=== PATIENT | male | born 1990 | race Two or more races ===

== ENCOUNTER 2017-03-17 21:44 | Emergency (ER) | payer OTHER ==
[~2017-03-17] VITALS: Ht 154.9 cm; Wt 63.5 kg
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
--- NOTE | 2017-03-17 22:12 | NUR ---
GARETH ROBERT AT BEDSIDE FOR EVAL.
--- NOTE | 2017-03-17 22:25 | NUR ---
BREAD PACKER AT BEDSIDE FOR BLOOD DRAW.
--- NOTE | 2017-03-17 22:25 | NUR ---
Nydia marin in [facility] - 03/18/17 at 1118 by ALEXA EMAIL ADMINISTRATOR AT BEDSIDE FOR WILMANAL.
[2017-03-17] MEDS ORDERED: IV NS 0.9% 1,000 ML BAG IV ONE (22:30)
[2017-03-17 22:48] LABS: BASOPHILS # (AUTO) 0.1 /CMM (0.0-0.2); BASOPHILS % (AUTO) 0.6 % (0.0-2.0); EOSINOPHILS # (AUTO) 0.1 /CMM (0.0-0.7); EOSINOPHILS % (AUTO) 1.4 % (0.0-6.0); HEMATOCRIT 41 % (39-51); HEMOGLOBIN 13.7 g/dL (13.5-17.5); LYMPHOCYTES # (AUTO) 3.1 /CMM (0.8-4.8); LYMPHOCYTES % (AUTO) 33.8 % (20.0-44.0); MEAN CORPUSCULAR HEMOGLOBIN 28 PG (26.0-33.0); MEAN CORPUSCULAR HGB CONC 34 g/dl (31.0-36.0); MEAN CORPUSCULAR VOLUME 84 fL (80-96); MONOCYTES # (AUTO) 0.6 /CMM (0.1-1.30); NEUTROPHILS # (AUTO) 5.2 /CMM (1.8-8.9); NEUTROPHILS % (AUTO) 57.2 % (43.0-81.0); PLATELET COUNT (AUTO) 320 /CMM (150-450); RDW COEFFICIENT OF VARIATION 12.7 (11.5-15.0); RED BLOOD CELL COUNT(AUTO) 4.84 MIL/uL (4.5-6.0); WHITE BLOOD COUNT (AUTO) 9.1 K/uL (4.3-11.0)
[2017-03-17 23:03] LABS: CALCIUM, SERUM 8.3 mg/dL (8.5-10.1); CREATININE 0.6 mg/dL (0.6-1.3); POTASSIUM 2.9 mmol/L (3.5-5.1)
[2017-03-17 23:10] LABS: ALBUMIN 4.2 g/dL (3.4-5.0); BILIRUBIN,DIRECT 0.1 mg/dL (0.0-0.2); BILIRUBIN,TOTAL 0.2 mg/dL (0.2-1.0); SALICYLATE 1.9 mg/dL (2.8-20.0); TOTAL PROTEIN, SERUM 7.5 g/dL (6.4-8.2)
--- NOTE | 2017-03-17 23:17 | NUR ---
REPORT GIVEN TO CHARGE NURSE EVELYN FOR JOLENE.
[2017-03-17 23:53] LABS: CANNABINOID, URINE NEGATIVE (NEGATIVE); PHENCYCLIDINE SCREEN,URINE NEGATIVE (NEGATIVE)
[2017-03-18] MEDS ORDERED: IV PREMIX D5 1/2NS + KCL 1,000 ML IV ONE ×2 (00:15→02:07)
[2017-03-18] MEDS ORDERED: OLANZAPINE 10 MG VIAL IM ONE ×2 (00:30→05:34)
[2017-03-18] MEDS ORDERED: IV SET PRIMARY PUMP SET 1 EA INFUS.SET MC ONE (02:07)
--- NOTE | 2017-03-18 02:10 | NUR ---
PT REFUSING IV INSERTION AND FLUIDS. DR REYES NOTIFIED.
[2017-03-18] MEDS ORDERED: WATER FOR INJECTION,STERILE 10 ML ONE (05:34)
--- NOTE | 2017-03-18 08:04 | NUR ---
PT'S - MAITE ZAVALA ([phone]), UPDATED WITH PT'S STATUS.
--- NOTE | 2017-03-18 11:00 | NUR ---
ASSUME PT CARE. SLEEPING, EASILY AROUSABLE. ON MONITOR W/ STABLE VITALS. VSS. NAD NOTED. WILL MONITOR CLOSELY.
--- NOTE | 2017-03-18 11:42 | NUR ---
PT AWAKE, PROVIDED W/ MEAL TRAY.
--- NOTE | 2017-03-18 12:28 | NUR ---
CALLED ANGIE FOR PSYCH EVAL ETA 1 HOUR
--- NOTE | 2017-03-18 13:26 | NUR ---
ANGIE AT BEDSIDE FOR PSYCH EVAL.
--- NOTE | 2017-03-18 15:10 | NUR ---
PT RESTING IN BED. CALM. WATCHING TV. NEEDS ATTENDED. WILL MONITOR.
[2017-03-18] MEDS ORDERED: LORAZEPAM 1 MG TABLET ONE (15:28)
[2017-03-18] MEDS ORDERED: LORAZEPAM 1 MG TABLET PO ONE (15:30)
--- NOTE | 2017-03-18 18:10 | NUR ---
PT IS MEDICALLY AND PSYCH CLEARED TO GO HOME. AT BEDSIDE. D/C IN STABLE CONDITION.
[2017-03-18 18:11] VITALS: BP 132/84
== END 2017-03-18 18:11 | disposition home or self-care (01) ==
LOC: ER 21:46
DX: F29 Unspecified psychosis not due to a substance or known physiological condition (principal); F10.129 Alcohol abuse with intoxication, unspecified; F32.9 Major depressive disorder, single episode, unspecified; F31.9 Bipolar disorder, unspecified
CPT/HCPCS: 36415; 80048-TC; 80076-TC; 80305; 83735-TC; 85025-TC; A4606; G0480; G6039-TC; J3490; Z7610

== ENCOUNTER 2019-04-06 17:49 | Emergency (ER) | payer SELFPAY ==
[~2019-04-06] VITALS: Ht 175.3 cm; Wt 69.4 kg
--- NOTE | 2019-04-06 18:03 | NUR ---
MONALISA SALDANA FROM HOME,DAD CALLED, DRANK 4 OZ. HAND TUBE STATION ATTENDANT AT 2 AM AND VODKA THROUGH OUT THE DAY "FOR MY ANXIETY". DENIES SI/HI. NO ACUTE DISTRESS NOTED. HOOKED TO MONITOR AND MADE COMFORTABLE. READY FOR EVAL.
--- NOTE | 2019-04-06 18:23 | NUR ---
POISON CONTROL CALLED,SPOKE WITH MARIIA RECOMMENDED: TREAT REGULAR ALCOHOL INTOXICATION,WATCH OUT FOR METABOLIC ACIDOSIS WHICH MAY BE DUE TO SOMETHING ELSE,KEEP HYDRATED AND BENZOS NEEDED. DR REGALADO INFORMED
[2019-04-06 18:28] LABS: BASOPHILS # (AUTO) 0.1 /CMM (0.0-0.2); BASOPHILS % (AUTO) 1.3 % (0.0-2.0); HEMATOCRIT 46 % (39-51); HEMOGLOBIN 15.4 g/dL (13.5-17.5); LYMPHOCYTES # (AUTO) 1.8 /CMM (0.8-4.8); LYMPHOCYTES % (AUTO) 38.2 % (20.0-44.0); MEAN CORPUSCULAR HGB CONC 34 g/dl (31.0-36.0); MEAN CORPUSCULAR VOLUME 91 fL (80-96); MONOCYTES # (AUTO) 0.3 /CMM (0.1-1.30); MONOCYTES % (AUTO) 5.9 % (2.0-12.0); NEUTROPHILS # (AUTO) 2.5 /CMM (1.8-8.9); NEUTROPHILS % (AUTO) 53.6 % (43.0-81.0); PLATELET COUNT (AUTO) 238 /CMM (150-450); RED BLOOD CELL COUNT(AUTO) 4.99 MIL/uL (4.5-6.0); WHITE BLOOD COUNT (AUTO) 4.7 K/uL (4.3-11.0)
[2019-04-06] MEDS ORDERED: IV NS 0.9% 1,000 ML BAG IV ONE (18:30)
[2019-04-06 18:39] LABS: CALCIUM, SERUM 8.2 mg/dL (8.5-10.1); CARBON DIOXIDE 27 mmol/L (21-32); CHLORIDE 104 mmol/L (98-107); CREATININE 0.8 mg/dL (0.6-1.3); GLUCOSE 95 mg/dL (74-106); POTASSIUM 3.7 mmol/L (3.5-5.1); SODIUM SERUM 142 mmol/L (136-145); UREA NITROGEN, BLOOD 4 mg/dL (7-18)
[2019-04-06 18:46] LABS: ALANINE AMINOTRANSFERASE 251 U/L (12-78); ALBUMIN 4.4 g/dL (3.4-5.0); ALCOHOL, BLOOD 437 mg/dL (0-0); ALKALINE PHOSPHATASE 311 U/L (46-116); ASPARTATE AMINOTRANSFERASE 245 U/L (15-37); BILIRUBIN,DIRECT 0.1 mg/dL (0.0-0.2); BILIRUBIN,TOTAL 0.2 mg/dL (0.2-1.0); TOTAL PROTEIN, SERUM 7.9 g/dL (6.4-8.2)
[2019-04-06 18:50] LABS: ACETAMINOPHEN < 5 ug/ml (10-30); SALICYLATE 2.5 mg/dL (2.8-20.0)
--- NOTE | 2019-04-06 19:10 | NUR ---
URINE SENT TO STAT LAB
[2019-04-06 19:31] LABS: APPEARANCE,URINE Clear (CLEAR); BILIRUBIN,URINE Negative (NEGATIVE); BLOOD, URINE Trace-intact Ery/uL (NEGATIVE); COLOR,URINE Yellow (YELLOW); KETONES,URINE Negative (NEGATIVE); LEUKOCYTE ESTERASE ,URINE Negative (NEGATIVE); NITRITE, URINE Negative (NEGATIVE); PH,URINE 6.5 (5.0-8.0); PROTEIN,URINE Negative (NEGATIVE); UGLUCOSE Negative (NEGATIVE); UROBILINOGEN,URINE 0.2 EU/dL (0.2)
[2019-04-06 19:56] LABS: BACTERIA,URINE None seen /HPF (None Seen); RBC,URINE 2-3/HPF /HPF (0-2); SQUAMOUS EPITHELIAL CELL,UR Rare /HPF (None Seen); URINE AMORPHOUS URATE Few /HPF (None Seen); WBC,URINE 0-2 /HPF (0-3)
[2019-04-06] MEDS ORDERED: HALOPERIDOL LACTATE INJ 5 MG/ML VIAL IM ONE (20:30)
[2019-04-06] MEDS ORDERED: HALOPERIDOL LACTATE INJ 5 MG/ML VIAL ONE (20:33)
--- NOTE | 2019-04-06 20:49 | NUR ---
PT MADE COMFORTABLE WITH WARM BLANKETS. NO COMPLAINTS AT THIS TIME. VSS.
--- NOTE | 2019-04-06 22:08 | NUR ---
PT ASLEEP IN BED. NO COMPLAINTS AT THIS TIME. IVF COMPLETE. WILL CONT TO MONITOR.
--- NOTE | 2019-04-07 00:05 | NUR ---
pt continues to sleep in bed w/ resp even & unlabored, nad noted.
--- NOTE | 2019-04-07 01:09 | NUR ---
Call fr Betancourt at Poison Control advise recheck ETOH and CMP levels [phone]. Dr. Painting aware.
--- NOTE | 2019-04-07 01:48 | NUR ---
pt asleep in supine w/ resp even & unlabored, nad noted. bed low to ground w/ siderails up for safety. On continuous monitoring.
--- NOTE | 2019-04-07 02:47 | NUR ---
Pt awake, sitting up in bed requesting for water. Water provided. pt sitting up, drinking w/ no aspiration of flds, resp even & unlabored, nad noted. bed low to ground w/ siderails up for safety.
--- NOTE | 2019-04-07 03:32 | NUR ---
US tech at bedside for US gallbladder.
--- NOTE | 2019-04-07 04:20 | NUR ---
Pt sleeping w/ resp even & unlabored, nad noted. Bed low to ground w/ siderails up for safety.
--- NOTE | 2019-04-07 05:28 | NUR ---
heating and cooling technician at bedside for blood draw.
[2019-04-07 05:42] LABS: CALCIUM, SERUM 8.3 mg/dL (8.5-10.1); CREATININE 0.7 mg/dL (0.6-1.3); POTASSIUM 3.9 mmol/L (3.5-5.1)
[2019-04-07 05:55] LABS: ALBUMIN 3.6 g/dL (3.4-5.0); BILIRUBIN,TOTAL 0.3 mg/dL (0.2-1.0); TOTAL PROTEIN, SERUM 6.7 g/dL (6.4-8.2)
[2019-04-07 06:07] VITALS: BP 149/69
--- NOTE | 2019-04-07 09:14 | NUR ---
CALLED [facility] [phone] LEFT [facility] [place].
--- NOTE | 2019-04-07 11:45 | NUR ---
IV removed. Catheter intact and site benign. Pressure and 4x4 applied to site. No bleeding noted.
--- NOTE | 2019-04-07 11:52 | NUR ---
SEEN AND CLEARED BY [place] IBARRA, VERBALIZED UNDERSTANDING OF ACI,D/C TO WR TO WAIT FOR RIDE
== END 2019-04-07 11:57 | disposition home or self-care (01) ==
LOC: ER 17:52
DX: F10.129 Alcohol abuse with intoxication, unspecified (principal); R45.851 Suicidal ideations; R74.0 Nonspecific elevation of levels of transaminase and lactic acid dehydrogenase [LDH]; R45.1 Restlessness and agitation; F41.9 Anxiety disorder, unspecified; F31.9 Bipolar disorder, unspecified; F17.200 Nicotine dependence, unspecified, uncomplicated; R00.0 Tachycardia, unspecified; Y90.1 Blood alcohol level of 20-39 mg/100 ml; Z98.890 Other specified postprocedural states
CPT/HCPCS: 36415 ×2; 76705; 80048; 80053; 80076; 80305; 80307 ×3; 80329; 81001; 85025; 93005; 96372; 99284; G0480; J1630; J7030; 81000-TC

== ENCOUNTER 2019-04-09 17:43 | Emergency (ER) | payer SELFPAY ==
[~2019-04-09] VITALS: Ht 175.3 cm; Wt 72.1 kg
--- NOTE | 2019-04-09 18:11 | NUR ---
PT BROUGHT IN BIBA RA 88 From Home "Grandparent called- He drank hand dictaphone transcriber LABS DRAWN PT CALM AND COOPERATIVE WILL CONTINUE TO MONITOR.
[2019-04-09] MEDS ORDERED: LORAZEPAM 1 MG TABLET ONE (18:13)
[2019-04-09] MEDS ORDERED: LORAZEPAM 1 MG TABLET PO ONE (18:30)
--- NOTE | 2019-04-10 01:15 | NUR ---
Patient is resting comfortably in bed with eyes closed. Easily aroused. VSS
--- NOTE | 2019-04-10 02:23 | NUR ---
PT AMBULATED TO BATHROOM AND BACK TO BED WITH A STEADY GAIT.
--- NOTE | 2019-04-10 02:30 | NUR ---
PT AAOX4. DENIES HI/SI AT THIS TIME. Patient discharged to home in stable condition. Written and verbal after care instructions given. Patient verbalizes understanding of instruction. Pt ambulatory with a steady gait. States he will go home to parent's house
[2019-04-10 02:31] VITALS: BP 110/76
== END 2019-04-10 02:31 | disposition home or self-care (01) ==
LOC: ER 17:45
DX: T65.891A Toxic effect of other specified substances, accidental (unintentional), initial encounter (principal); F41.9 Anxiety disorder, unspecified; F32.9 Major depressive disorder, single episode, unspecified; F17.200 Nicotine dependence, unspecified, uncomplicated; Y92.89 Other specified places as the place of occurrence of the external cause
CPT/HCPCS: 36415; G0480

== ENCOUNTER 2019-07-04 11:13 | Emergency (ER) | payer OTHER, MEDICAID ==
[~2019-07-04] VITALS: Ht 170.2 cm; Wt 81.6 kg
--- NOTE | 2019-07-04 12:37 | NUR ---
called for triage not in the waiting room.
[2019-07-04 13:03] VITALS: BP 138/90
--- NOTE | 2019-07-04 13:04 | NUR ---
BIBGF FROM HOME, ALCOHOL INTOXICATION, BEEN DRINKING x 5 DAYS, +SI, PER GF "HE DRINK HAND CUSTOM APPLICATOR AND MOUTHWASH THIS MORNING". TO ER BED 14, HOOKED TO MONITOR, PT REFUSED TO BE CHANGED TO GOWMaikol, SITTER AT BEDSIDE, AWAITING MD CRUZ
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
[2019-07-04 13:24] LABS: BASOPHILS # (AUTO) 0.1 /CMM (0.0-0.2); BASOPHILS % (AUTO) 1.2 % (0.0-2.0); HEMATOCRIT 44 % (39-51); HEMOGLOBIN 14.9 g/dL (13.5-17.5); LYMPHOCYTES # (AUTO) 1.7 /CMM (0.8-4.8); LYMPHOCYTES % (AUTO) 36.9 % (20.0-44.0); MEAN CORPUSCULAR HGB CONC 34 g/dl (31.0-36.0); MEAN CORPUSCULAR VOLUME 85 fL (80-96); MONOCYTES # (AUTO) 0.4 /CMM (0.1-1.30); MONOCYTES % (AUTO) 9.3 % (2.0-12.0); NEUTROPHILS # (AUTO) 2.4 /CMM (1.8-8.9); NEUTROPHILS % (AUTO) 51.6 % (43.0-81.0); PLATELET COUNT (AUTO) 258 /CMM (150-450); RED BLOOD CELL COUNT(AUTO) 5.14 MIL/uL (4.5-6.0); WHITE BLOOD COUNT (AUTO) 4.6 K/uL (4.3-11.0)
[2019-07-04] MEDS ORDERED: IV NS 0.9% 1,000 ML BAG IV ONE (13:30)
[2019-07-04 13:31] LABS: CREATININE 0.8 mg/dL (0.6-1.3)
[2019-07-04 13:37] LABS: ALBUMIN 3.9 g/dL (3.4-5.0); BILIRUBIN,DIRECT 0.1 mg/dL (0.0-0.2); BILIRUBIN,TOTAL 0.2 mg/dL (0.2-1.0); SALICYLATE 2.4 mg/dL (2.8-20.0); TOTAL PROTEIN, SERUM 7.4 g/dL (6.4-8.2)
[2019-07-04 13:39] LABS: CREATINE KINASE, TOTAL 205 U/L (39-308)
[2019-07-04 13:40] LABS: OSMOLALITY,SERUM 369 mOS/kg (278-305)
[2019-07-04 13:41] LABS: APPEARANCE,URINE Hazy (CLEAR); BILIRUBIN,URINE Negative (NEGATIVE); BLOOD, URINE Trace-intact Ery/uL (NEGATIVE); COLOR,URINE Yellow (YELLOW); KETONES,URINE Trace (NEGATIVE); LEUKOCYTE ESTERASE ,URINE Negative (NEGATIVE); NITRITE, URINE Negative (NEGATIVE); PH,URINE 5.5 (5.0-8.0); PROTEIN,URINE 100 mg/dl (NEGATIVE); UGLUCOSE Negative (NEGATIVE); UROBILINOGEN,URINE 0.2 EU/dL (0.2)
--- NOTE | 2019-07-04 13:47 | NUR ---
Patient eloped from facility. ER MD notified.
[2019-07-04 13:48] LABS: BACTERIA,URINE Rare /HPF (None Seen); SQUAMOUS EPITHELIAL CELL,UR Few /HPF (None Seen)
--- NOTE | 2019-07-04 13:49 | NUR ---
CALLED [facility] [phone] SPOKE WITH [employer] INST[phone] THEY'[address] BE ON [address].
--- NOTE | 2019-07-04 13:57 | NUR ---
Nydia marin in ED - 07/04/19 at 1555 by RAMIN Patient eloped from [facility] MEDARDO BURKETT notified.
== END 2019-07-04 15:59 | disposition left against medical advice (07) ==
LOC: ER 11:15
DX: F10.129 Alcohol abuse with intoxication, unspecified (principal); F17.200 Nicotine dependence, unspecified, uncomplicated; F32.9 Major depressive disorder, single episode, unspecified; F41.9 Anxiety disorder, unspecified; Z98.890 Other specified postprocedural states; Y90.9 Presence of alcohol in blood, level not specified
CPT/HCPCS: 36415; 80048; 80076; 80305; 80307; 80329; 81001; 82550; 83935; 85025; 99283; G0480; 81000-TC; J7030

== ENCOUNTER 2020-09-12 17:04 | Emergency (ER) | payer MEDICAID, OTHER ==
[~2020-09-12] VITALS: Ht 170.2 cm; Wt 86.2 kg
--- NOTE | 2020-09-12 17:20 | NUR ---
C/O "I OVERDOSED ON 12-16 BOTTLES OF HAND SANITIZERS FOR THE PAST 2 WEEKS BECAUSE IT IS EASY TO GET THAN ALCOHOL". PT ADMITS TO BE ANXIOUS. PT AAOX3, VSS. RR EVEN & UNLABORED. DENIES CP, SOB, DIZZINESS, N/V AT THIS TIME. PT SEEN & EVAL'D BY DR. ROMERO. WILL CONT TO MONITOR.
[2020-09-12 17:50] LABS: BASOPHILS # (AUTO) 0.1 /CMM (0.0-0.2); BASOPHILS % (AUTO) 2.2 % (0.0-2.0); EOSINOPHILS % (AUTO) 3.1 % (0.0-6.0); HEMATOCRIT 43 % (39-51); HEMOGLOBIN 14.6 g/dL (13.5-17.5); LYMPHOCYTES % (AUTO) 42.1 % (20.0-44.0); MEAN CORPUSCULAR HGB CONC 34 g/dl (31.0-36.0); MEAN CORPUSCULAR VOLUME 86 fL (80-96); MONOCYTES # (AUTO) 0.4 /CMM (0.1-1.30); MONOCYTES % (AUTO) 8.4 % (2.0-12.0); NEUTROPHILS # (AUTO) 2.1 /CMM (1.8-8.9); NEUTROPHILS % (AUTO) 44.2 % (43.0-81.0); PLATELET COUNT (AUTO) 204 /CMM (150-450); RED BLOOD CELL COUNT(AUTO) 4.95 MIL/uL (4.5-6.0); WHITE BLOOD COUNT (AUTO) 4.7 K/uL (4.3-11.0)
[2020-09-12 17:51] LABS: APPEARANCE,URINE CLEAR (CLEAR); BILIRUBIN,URINE NEGATIVE (NEGATIVE); BLOOD, URINE NEGATIVE Ery/uL (NEGATIVE); COLOR,URINE YELLOW (YELLOW); KETONES,URINE NEGATIVE (NEGATIVE); LEUKOCYTE ESTERASE ,URINE NEGATIVE (NEGATIVE); NITRITE, URINE NEGATIVE (NEGATIVE); PROTEIN,URINE NEGATIVE (NEGATIVE); UGLUCOSE NEGATIVE (NEGATIVE); UROBILINOGEN,URINE 0.2 EU/dL (0.2)
--- NOTE | 2020-09-12 18:00 | NUR ---
LAST BOTTLE OF ROBOTICS APPLICATION ENGINEER TAKEN X 2 HOURS AGO. PT FINISHED DRINKING APPROXIMATELY 250 MLS
[2020-09-12 18:04] LABS: CALCIUM, SERUM 8.4 mg/dL (8.5-10.1); CARBON DIOXIDE 25 mmol/L (21-32); CHLORIDE 105 mmol/L (98-107); CREATININE 0.8 mg/dL (0.6-1.3); GLUCOSE 99 mg/dL (74-106); POTASSIUM 3.4 mmol/L (3.5-5.1); SODIUM SERUM 145 mmol/L (136-145); UREA NITROGEN, BLOOD 4 mg/dL (7-18)
[2020-09-12 18:17] LABS: ALANINE AMINOTRANSFERASE 111 U/L (12-78); ALCOHOL, BLOOD 279 mg/dL (0-0); ALKALINE PHOSPHATASE 94 U/L (46-116); ASPARTATE AMINOTRANSFERASE 82 U/L (15-37); BILIRUBIN,TOTAL 0.1 mg/dL (0.2-1.0); TOTAL PROTEIN, SERUM 7.2 g/dL (6.4-8.2)
[2020-09-12 18:27] LABS: ACETAMINOPHEN < 10 ug/ml (10-30)
--- NOTE | 2020-09-12 18:48 | NUR ---
POISON CONTROL CALLED,SPOKE WITH CLARA RECOMMENDATIONS: ADD SERUM OSMOLALITY IN INITIAL BLOOD DRAW REPEAT CHEMISTRY,SERUM OSMOLALITY,LFT'S IN 4-6 HRS AFTER INITIAL. IF LABS ARE WORSE,CALL THEM BACK
--- NOTE | 2020-09-12 19:20 | NUR ---
ABG RESULTS HANDED OVER TO DR ROMERO
--- NOTE | 2020-09-12 19:20 | NUR ---
PT DENIES SI/HI
--- NOTE | 2020-09-12 20:41 | NUR ---
PT RESTING COMFORTABLY IN BED. NO ACUTE DISTRESS NOTED. VSS. CALL LIGHT WITHIN REACH. WILL CONTINUE TO MONITOR
[2020-09-12 23:02] LABS: CALCIUM, SERUM 8.4 mg/dL (8.5-10.1); CREATININE 0.8 mg/dL (0.6-1.3); POTASSIUM 4.3 mmol/L (3.5-5.1)
[2020-09-12 23:11] LABS: ALBUMIN 3.8 g/dL (3.4-5.0); BILIRUBIN,TOTAL 0.1 mg/dL (0.2-1.0)
--- NOTE | 2020-09-12 23:37 | NUR ---
POISON CONTROL CALLED WITH REPEAT CMP AND SERUM OSMALALITY. PER MARIIA WILL BE CLOSING CASE. OK TO OBSERVE AND DISCHARGE ACCORDINGLY.
--- NOTE | 2020-09-13 01:36 | NUR ---
Patient discharged to home in stable condition. Written and verbal after care instructions given. Patient verbalizes understanding of instruction. Pt ambulated with steady gait. vss.
--- NOTE | 2020-09-13 01:36 | NUR ---
IV removed. Catheter intact and site benign. Pressure and 4x4 applied to site. No bleeding noted.
[2020-09-13 01:38] VITALS: BP 124/76
== END 2020-09-13 01:38 | disposition home or self-care (01) ==
LOC: ER 17:13
DX: T49.0X1A Poisoning by local antifungal, anti-infective and anti-inflammatory drugs, accidental (unintentional), initial encounter (principal); R00.2 Palpitations; F15.10 Other stimulant abuse, uncomplicated; F10.10 Alcohol abuse, uncomplicated; E87.6 Hypokalemia; R74.01 Elevation of levels of liver transaminase levels; F32.9 Major depressive disorder, single episode, unspecified; Z98.890 Other specified postprocedural states; Y90.8 Blood alcohol level of 240 mg/100 ml or more; Y92.89 Other specified places as the place of occurrence of the external cause
CPT/HCPCS: 36415; 80048-TC; 80053-TC; 80076-TC; 81000-TC; 83735-TC; 83935-TC; 85025-TC; 85730-TC; G0480

== ENCOUNTER 2020-09-21 21:13 | Emergency (ER) | payer OTHER ==
[~2020-09-21] VITALS: Ht 170.2 cm; Wt 81.6 kg
--- NOTE | 2020-09-21 21:15 | NUR ---
PT [id number] FROM HOME FOR ETOH; DRANK "5 BOTTLES OF HAND MANAGER TRADE MARKETING" 2HRS BODY ROLLING MACHINE TENDER. PT PLACED IN BED 3 ON MONITOR AND PULSE OX. DENIES SI AND HI. NO ACUTE DISTRESS NOTED. AWAITING MD FOR EVAL AND ORDERS.
--- NOTE | 2020-09-21 21:36 | NUR ---
CALLED POISON CONTROL [phone] KEITH BRINK TYLENOL & ASA WATCH FOR N/V OBSERVE FOR MIN OF 3 HOURS
[2020-09-21] MEDS ORDERED: IV NS 0.9% 1,000 ML BAG IV ONE (22:00)
[2020-09-21 22:26] LABS: BASOPHILS # (AUTO) 0.1 /CMM (0.0-0.2); BASOPHILS % (AUTO) 1.2 % (0.0-2.0); EOSINOPHILS % (AUTO) 1.2 % (0.0-6.0); HEMATOCRIT 46 % (39-51); HEMOGLOBIN 15.4 g/dL (13.5-17.5); LYMPHOCYTES # (AUTO) 2.3 /CMM (0.8-4.8); LYMPHOCYTES % (AUTO) 33.1 % (20.0-44.0); MEAN CORPUSCULAR HGB CONC 34 g/dl (31.0-36.0); MEAN CORPUSCULAR VOLUME 88 fL (80-96); MONOCYTES # (AUTO) 0.4 /CMM (0.1-1.30); MONOCYTES % (AUTO) 5.4 % (2.0-12.0); NEUTROPHILS % (AUTO) 59.1 % (43.0-81.0); PLATELET COUNT (AUTO) 219 /CMM (150-450); RED BLOOD CELL COUNT(AUTO) 5.21 MIL/uL (4.5-6.0); WHITE BLOOD COUNT (AUTO) 6.8 K/uL (4.3-11.0)
[2020-09-21 22:35] LABS: CALCIUM, SERUM 7.8 mg/dL (8.5-10.1); CARBON DIOXIDE 23 mmol/L (21-32); CHLORIDE 102 mmol/L (98-107); CREATININE 0.7 mg/dL (0.6-1.3); GLUCOSE 88 mg/dL (74-106); POTASSIUM 3.3 mmol/L (3.5-5.1); SODIUM SERUM 141 mmol/L (136-145); UREA NITROGEN, BLOOD 12 mg/dL (7-18)
[2020-09-21 22:43] LABS: ALANINE AMINOTRANSFERASE 52 U/L (12-78); ALCOHOL, BLOOD 426 mg/dL (0-0); ALKALINE PHOSPHATASE 90 U/L (46-116); ASPARTATE AMINOTRANSFERASE 34 U/L (15-37); BILIRUBIN,DIRECT 0.1 mg/dL (0.0-0.2); BILIRUBIN,TOTAL 0.2 mg/dL (0.2-1.0); TOTAL PROTEIN, SERUM 7.5 g/dL (6.4-8.2)
[2020-09-21 22:45] LABS: ACETAMINOPHEN < 2 ug/ml (10-30)
--- NOTE | 2020-09-21 22:58 | NUR ---
OSMO [id number] PER LAB PROVIDER MARY COLLADO.
[2020-09-22 00:04] LABS: APPEARANCE,URINE CLEAR (CLEAR); BILIRUBIN,URINE NEGATIVE (NEGATIVE); BLOOD, URINE TRACE-INTA Ery/uL (NEGATIVE); COLOR,URINE YELLOW (YELLOW); KETONES,URINE TRACE (NEGATIVE); LEUKOCYTE ESTERASE ,URINE NEGATIVE (NEGATIVE); NITRITE, URINE NEGATIVE (NEGATIVE); PROTEIN,URINE NEGATIVE (NEGATIVE); UGLUCOSE NEGATIVE (NEGATIVE); UROBILINOGEN,URINE 0.2 EU/dL (0.2)
[2020-09-22 00:28] LABS: BACTERIA,URINE None seen /HPF (None Seen); RBC,URINE 0-2 /HPF (0-2); WBC,URINE 0-2 /HPF (0-3)
[2020-09-22 00:29] LABS: SQUAMOUS EPITHELIAL CELL,UR Few /HPF (None Seen)
--- NOTE | 2020-09-22 00:37 | NUR ---
ASPHALT SPREADER OPERATOR AT BEDSIDE
--- NOTE | 2020-09-22 01:00 | NUR ---
PT SEEN BY FRED ANDRESON.
--- NOTE | 2020-09-22 04:30 | NUR ---
CALLED LAB FOR SCHEDULED BLOOD DRAW
--- NOTE | 2020-09-22 04:39 | NUR ---
LAB AT BEDSIDE FOR BLOOD DRAW
[2020-09-22 05:07] LABS: CALCIUM, SERUM 7.9 mg/dL (8.5-10.1); CREATININE 0.7 mg/dL (0.6-1.3); POTASSIUM 3.6 mmol/L (3.5-5.1)
[2020-09-22 05:13] LABS: ALBUMIN 3.7 g/dL (3.4-5.0); BILIRUBIN,TOTAL 0.2 mg/dL (0.2-1.0); TOTAL PROTEIN, SERUM 7.2 g/dL (6.4-8.2)
--- NOTE | 2020-09-22 06:46 | NUR ---
CALLED LAB, AWARE SCHEDULED LAB DRAW AT 8AM
--- NOTE | 2020-09-22 07:01 | NUR ---
AWAITING FOR BLOOD DRAW AT 8
--- NOTE | 2020-09-22 08:30 | NUR ---
CALLED LAB ONCE AGAIN FOR BLOOD DRAW FOR SERUM OSMOLALITY. INFORMED LAB THAT LEVELD NEED TO BE DRAWN NOW.
[2020-09-22 09:01] LABS: ALBUMIN 3.8 g/dL (3.4-5.0); BILIRUBIN,TOTAL 0.2 mg/dL (0.2-1.0); CALCIUM, SERUM 8.1 mg/dL (8.5-10.1); CREATININE 0.7 mg/dL (0.6-1.3); POTASSIUM 3.7 mmol/L (3.5-5.1); TOTAL PROTEIN, SERUM 7.2 g/dL (6.4-8.2)
--- NOTE | 2020-09-22 10:46 | NUR ---
PER ER MD PT IS GOOD FOR DISCHARGED.
[2020-09-22 10:59] VITALS: BP 122/77
--- NOTE | 2020-09-22 10:59 | NUR ---
IV removed. Catheter intact and site benign. Pressure and 4x4 applied to site. No bleeding noted. Patient discharged to home in stable condition. Written and verbal after care instructions given. Patient verbalizes understanding of instruction.
== END 2020-09-22 11:01 | disposition home or self-care (01) ==
LOC: ER 21:15
DX: F10.129 Alcohol abuse with intoxication, unspecified (principal); F31.9 Bipolar disorder, unspecified; F15.10 Other stimulant abuse, uncomplicated; Y90.5 Blood alcohol level of 100-119 mg/100 ml; Z98.890 Other specified postprocedural states
CPT/HCPCS: 36415 ×2; 80048; 80053 ×2; 80076; 80299; 80307; 80320 ×3; 81001; 83935 ×3; 85025; 85730; 93005; 96360; 99285; J7030; 81000-TC; G0480